=== PATIENT | male | born 1970 | race Two or more races ===

== ENCOUNTER → 2021-08-13 07:41 | Outpatient (BNVA) | payer OTHER, SELFPAY | PROVIDERS: Visit Provider Physician Assistant Medical | DX: S80.02XA Contusion of left knee, initial encounter (principal); S82.002A Unspecified fracture of left patella, initial encounter for closed fracture; S93.402A Sprain of unspecified ligament of left ankle, initial encounter; S43.401A Unspecified sprain of right shoulder joint, initial encounter; S63.501A Unspecified sprain of right wrist, initial encounter; V66 Occupant of heavy transport vehicle injured in collision with other nonmotor vehicle | CPT/HCPCS: 73030; 73070; 73110; 73564; 73610; 99204 ==

== ENCOUNTER → 2021-08-16 13:46 | Outpatient (BNVA) | payer OTHER, SELFPAY | PROVIDERS: Visit Provider Physician Assistant | DX: S93.402A Sprain of unspecified ligament of left ankle, initial encounter (principal); M23.92 Unspecified internal derangement of left knee | CPT/HCPCS: 99202 ==

== ENCOUNTER → 2021-08-23 07:58 | Outpatient (BNVA) | payer OTHER, SELFPAY | PROVIDERS: Visit Provider Physician Assistant Medical | DX: Z13.89 Encounter for screening for other disorder (principal) ==

== ENCOUNTER 2021-08-31 14:07 | Outpatient (REF) | payer OTHER, SELFPAY ==
--- NOTE | ~2021-08-31 | MR_ITS ---
EXAMINATION: MR KNEE WITHOUT CONTRAST, LEFT CLINICAL INFORMATION: Left knee pain following an injury. Internal derangement. COMPARISON: Left knee radiographs dated 08/13/2021. TECHNIQUE: MRI of the knee without contrast was performed using routine sequences on a high-field scanner. FINDINGS: MENISCI: Medial Meniscus: Intact. Lateral Meniscus: Intact. LIGAMENTS: Cruciate: Attenuation of the anterior cruciate ligament without adjacent edema which could represent normal variation versus a chronic sprain/partial tear. Intact posterior cruciate ligament. Collateral: Intact. EXTENSOR MECHANISM: Normal patellofemoral alignment. No patella bang. Normal TT-TG distance. Intact quadriceps and patellar tendons. Minimal edema within the superolateral aspect of Hoffa's fat pad, which can be seen in the setting of patellar tendon-lateral femoral condyle friction syndrome. ARTICULAR CARTILAGE/BONE: Patellofemoral Compartment: Articular cartilage signal heterogeneity with full-thickness fissuring at the medial patellar facet measuring up to 0.7 cm in craniocaudal dimension. Underlying subchondral cystic change and marrow edema. Tiny marginal osteophytes. Medial Compartment: Intact articular cartilage. Lateral Compartment: Intact articular cartilage. JOINT FLUID AND BURSAE: Trace joint effusion. MR/MR knee LT wo con IMPRESSION: 1. Mild patellofemoral arthrosis. Trace joint effusion. 2. Edema within the superolateral aspect of Hoffa's fat pad, which can be seen in the setting of patellar tendon-lateral femoral condyle friction syndrome. 3. No acute meniscal or ligamentous injury. Attenuation of the anterior cruciate ligament without edema which could represent normal variation versus a remote sprain/partial tear.
--- NOTE | ~2021-08-31 | MR_ITS ---
EXAMINATION: MRI ANKLE WITHOUT CONTRAST, LEFT CLINICAL INFORMATION: Ligament sprain of left ankle. COMPARISON: X-ray of the left ankle 08/13/2021. TECHNIQUE: MRI of the left ankle was performed without contrast on a high-field MRI scanner. FINDINGS: SUBCUTANEOUS SOFT TISSUES: Normal. MUSCLES AND TENDONS: Achilles: Mild heterogeneity of the Achilles tendon compatible with tendinosis and perhaps small areas of interstitial partial tearing in the distal portion of the tendon but no measurable defect. There is minimal edema in Kager's fat pad. The remaining muscles and tendons are normal. NEUROVASCULAR STRUCTURES/TARSAL TUNNEL: Normal. LIGAMENTS: Intact. BONE/CARTILAGE: Talus: There is bone marrow edema along the medial aspect of the talus in the region of the posterior subtalar joint compatible with bone contusion. There is bone marrow edema along the medial neck and head of the talus compatible with bone contusion. Overlying articular cartilage is intact. Calcaneus: Bone marrow edema in the anterior process of the calcaneus compatible with bone contusion. Remaining bones and joints are normal. PLANTAR FASCIA: Normal. MR/MR ankle LT wo con IMPRESSION: Bone contusions involving the talus and calcaneus. Ligaments appear intact.
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
== END 2021-08-31 14:08 | disposition home or self-care (01) ==
LOC: HO.MRI 14:07
PROVIDERS: Visit Provider Physician Assistant
DX: M23.92 Unspecified internal derangement of left knee (principal); S93.402A Sprain of unspecified ligament of left ankle, initial encounter; X58.XXXA Exposure to other specified factors, initial encounter; Y93.9 Activity, unspecified; Y92.9 Unspecified place or not applicable; Y99.9 Unspecified external cause status
CPT/HCPCS: 73721

== ENCOUNTER → 2021-09-10 14:19 | Outpatient (BNVA) | payer OTHER, SELFPAY | PROVIDERS: Visit Provider Physician Assistant | DX: M22.2X2 Patellofemoral disorders, left knee (principal); S83.512D Sprain of anterior cruciate ligament of left knee, subsequent encounter; S90.02XD Contusion of left ankle, subsequent encounter | CPT/HCPCS: 99212 ==

== ENCOUNTER → 2021-10-26 11:42 | Outpatient (BNVA) | payer OTHER, SELFPAY | PROVIDERS: Visit Provider Orthopaedic Surgery | DX: M22.2X9 Patellofemoral disorders, unspecified knee (principal); S93.402D Sprain of unspecified ligament of left ankle, subsequent encounter; S83.519D Sprain of anterior cruciate ligament of unspecified knee, subsequent encounter; S90.02XD Contusion of left ankle, subsequent encounter | CPT/HCPCS: 99212 ==

== ENCOUNTER → 2021-12-07 11:28 | Outpatient (BNVA) | payer OTHER, SELFPAY | PROVIDERS: Visit Provider Physician Assistant | DX: M22.2X9 Patellofemoral disorders, unspecified knee (principal); S83.519A Sprain of anterior cruciate ligament of unspecified knee, initial encounter | CPT/HCPCS: 99212 ==

== ENCOUNTER 2021-12-18 14:00 | Outpatient (RCR) | payer OTHER, SELFPAY ==
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
--- NOTE | 2021-12-18 14:51 | MHC.PT.DC ---
[facility] [place] [facility] [place] Office [place] Office [address] [phone] F: [phone] F: [phone] F: [phone] F: [phone] Physical Therapy Discharge Report Diagnosis: This is a 51 yo male presenting to skilled PT with a script for internal derangement L knee, sprain of L ankle Date of Surgery: Date of Evaluation: 09/20/21 Date of Discharge: 12/18/21 Treatments to Date: 24 Cancellations to Date: 0 No Shows to Date: 0 Discharge Status: Achieved Goals Improved Function Independent with HEP Patient Elected to Stop Discharge Summary: Patient reporting 2-3/10 pain at the worst. He reports that walking long distances still cause some pain. He demos normal ROM and strength of his knees, continued mild gastroc tightness but no pain. He has a thorough HEP to continue on his own. He returns to work next week and has been cleared by ortho. DC to HEP. Electronically signed by: Anaid Mcgovern PT Please sign and return to therapist. Thank you for your referral.
== END 2021-12-18 15:05 | disposition home or self-care (01) ==
LOC: HO.PTCHIC 14:00
PROVIDERS: Visit Provider Physician Assistant
DX: S93.402A Sprain of unspecified ligament of left ankle, initial encounter (principal); M23.92 Unspecified internal derangement of left knee; M22.2X2 Patellofemoral disorders, left knee
CPT/HCPCS: 97110; 97140; 97162; 97164; 97530

== ENCOUNTER 2022-08-14 08:26 | Emergency (ER) | payer OTHER, SELFPAY ==
--- NOTE | ~2022-08-14 | XR_ITS ---
EXAMINATION: XR CHEST CLINICAL INFORMATION: Chest pain COMPARISON: None available. TECHNIQUE: Frontal view of the chest was obtained. FINDINGS: Lungs grossly clear. Heart and pulmonary vessels normal. XR/XR chest 1V IMPRESSION: Unremarkable examination.
[2022-08-14 08:35] VITALS: BP 141/77; PULSE 78; RESP 21; TEMP 36.8; O2SAT 98
[2022-08-14 08:38] VITALS: BP 141/77; PULSE 78; RESP 13; TEMP 36.8; O2SAT 98
[2022-08-14 08:44] VITALS: BP 141/77; PULSE 78; RESP 20; TEMP 36.8; O2SAT 99; BMI 32.1
--- NOTE | 2022-08-14 08:47 | ECG_ITS ---
Test Reason : chest pain Blood Pressure : / mmHG Vent. Rate : 069 BPM Atrial Rate : 069 BPM P-R Int : 130 ms QRS Dur : 088 ms QT Int : 378 ms P-R-T Axes : 057 -28 -16 degrees QTc Int : 405 ms Normal sinus rhythm Minimal voltage criteria for LVH, may be normal variant ( R in aVL ) Nonspecific T wave abnormality Abnormal ECG No previous ECGs available Referred By: Vanessa Leyva Electronically Signed By:Jamshid Alatorre
--- NOTE | 2022-08-14 08:48 | ED.CHESTPAIN ---
HPI - Chest Pain General Chief Complaint: Chest Pain Stated Complaint: chest pain Time Seen by Provider: 08/14/22 08:47 Source: patient Mode of arrival: ambulatory Limitations: no limitations History of Present Illness HPI narrative: 51 y/o male presents to the ER for evaluation of chronic cough for the last 4 months along with bilateral chest pain L>R for the last several weeks. He states his child and were sick with COVID a few months ago but he never got it. He has been having a chronic cough since then. His also has a chronic cough similar duration. He states his cough is worse with deep breaths and he has a hard time taking deep breaths. He states the pain is mostly in his left chest but sometimes the right, in the lower ribs. He denies any CENTENO, leg swelling, fever, chills, N/V/D or abdominal pain. He is occasionally bringing up yellow phelgm. He intemittently takes meds for his seasonal allergies. No pulmonary history. He is a never smoker. MD complaint: chest pain Onset (ago): month(s) (4) Timing of current episode: episodic Prior episodes: Yes Pain location: left chest and right chest Pain radiation: none Severity: severe Quality: aching and sharp Relieving factors: rest Exacerbating factors: inspiration, palpation and other (coughing) Context: recent illness Associated symptoms: cough Treatment prior to arrival: none Risk Factors Coronary artery disease risk factors: none Thoracic aortic dissection risk factors: none Related Data Home Medications Medication Instructions Recorded Confirmed ibuprofen 800 mg tablet 800 mg PO TID 08/16/21 Previous Rx's Medication Instructions Recorded ibuprofen 800 mg tablet 800 mg PO TID PRN pain #90 tabs 10/26/21 benzonatate 200 mg capsule 200 mg PO TID PRN cough #30 caps 08/14/22 ibuprofen 800 mg tablet 800 mg PO Q8H PRN pain #14 tabs 08/14/22 Allergies Allergy/AdvReac Type Severity Reaction Status Date / Time No Known Allergies Allergy Verified 12/07/21 11:36 Review of Systems Review of Systems: Yes all other systems are reviewed and are negative [facility] Past Medical History Surgical History History of facial surgery History of surgery on lower extremity Family History Family History Brother Colon cancer Father Colon cancer Prostate cancer Social History Social History Household Members: Spouse and Children Housing: House Alcohol intake: current Alcohol intake frequency: holidays/special occasions only Patient Tobacco Use Status: Former Tobacco user Smoked in Last 30 Days: No Use of substances other than those prescribed or required for medical reasons: No Advance Directives: No Current occupational status: employed Current occupation: City worker /rt handed Physical Exam Vital Signs: Vital Signs: Last Vital Signs Temp 98.3 F 08/14/22 08:44 Pulse 78 08/14/22 08:44 Resp 20 08/14/22 08:44 BP 141/77 H 08/14/22 08:44 Pulse Ox 99 08/14/22 08:44 O2 Del Method Room Air 08/14/22 08:44 BMI result Body Mass Index 32.1 Appearance: Alert. Oriented X3. No acute distress. Head: normocephalic, atraumatic. Eyes: Pupils equal, round and reactive to light. ENT: Pharynx normal. No tonsillar swelling or exudate. Neck: Normal inspection. Neck supple. CVS: Normal heart rate and rhythm. Pulses normal. Mild anterior chest wall tenderness throughout. Respiratory: No respiratory distress. Breath sounds with forced end expiratory wheeze in FLIP only. Abdomen: Soft and nontender. +BS x4 Skin: Skin warm and dry. Normal skin color. Normal skin turgor. No rashes. Extremities: No lower extremity edema. No joint swelling. Neuro/psych: Oriented X 3. No motor deficit. No sensory deficit. CN II-XII intact. Normal speech and cognition. Medications Administered Discontinued Medications Generic Name Dose Route Start Last Admin Trade Name Freq PRN Reason Stop Dose Admin Albuterol Sulfate 2 puff 08/14/22 08:58 08/14/22 09:49 Albuterol Sulfate 90 Mcg 8 Gm Inhaler INHALE 08/14/22 08:59 2 puff ONCE ONE Administration Medical Decision Making Medical Decision Making MDM Narrative: 51 yo healthy male presents to the ER for evaluation of a chronic cough for the last 4 months along with associated chest pain and difficulty taking a deep breath. Suspect chronic cough due to undiagnosed COVID-19. His VS are stable. No tachycardia or hypoxia. He was given 2 puffs of albuterol inhaler for some forced end expiatory wheezing with improvement. His CXR is clear. His EKG is normal. Labs unremarkable, troponin only 6 not consistent with cardiac ischemia. Will prescribed albuterol inhaler for home along with antitussive. NSAID for chest pain, most likely costochondritis due to chronic coughing. He has a physical coming up with his PCP. He is stable for d/c home. Differential Diagnosis Differential Diagnoses: The differential diagnosis associated with the presentation includes viral syndrome, allergies, PNA, bronchitis, chronic cough 2/2 COVID, costochondritis, pericarditis, myocarditis, doubt ACS or PE Lab Data MDM Lab Attestation statement: I reviewed the patient's lab results. polycythemia 08/14/22 08:57 08/14/22 08:57 Labs: Lab Results 08/14/22 08/14/22 08/14/22 Range/Units 08:57 08:57 08:57 WBC 10.1 (4.8-10.8) X10*3/uL RBC 6.32 H (4.60-5.80) X10*6/uL Hgb 18.1 H (14.0-18.0) g/dl Hct 54.9 H (42.0-52.0) % MCV 86.9 (80.0-98.0) fL MCH 28.6 (27.0-33.0) pg MCHC 33.0 (31.0-36.0) g/dl RDW 14.4 (11.0-16.0) % Plt Count 183 (160-400) X10*3/uL MPV 9.9 (9.4-12.4) fL Immature Gran % (Auto) 0.3 (0.0-0.4) % Neut % (Auto) 77.4 H (45-73) % Lymph % (Auto) 14.2 L (20-40) % [place] % (Auto) 6.4 (2-11) % Eos % (Auto) 1.2 (0-4) % Baso % (Auto) 0.5 (0-2) % Lymph # (Auto) 1.4 (1.2-4.9) X10*3/uL [place] # (Auto) 0.6 (0.1-1.2) X10*3/uL Eos # (Auto) 0.1 (0.0-0.4) X10*3/uL Baso # (Auto) 0.1 (0.0-0.2) X10*3/uL Abs Immat Gran (auto) 0.03 (0.00-0.03) X10*3/uL Absolute Neuts (auto) 7.8 (2.0-8.3) x10*3/uL Absolute Nucleated RBC 0.000 (0.0-0.012) X10*3/uL Nucleated RBC % (auto) 0.0 (0.0-0.2) /100WBC PT 11.1 (10.0-13.1) SEC INR 1.0 (0.9-1.1) APTT 25.0 L (26.0-36.4) SEC Sodium 140 (135-145) mmol/L Potassium 4.1 (3.3-5.1) mmol/L Chloride 105 (96-108) mmol/L Carbon Dioxide 27 (22-29) mmol/L Anion Gap 12 (12-20) BUN 16 (9-16) mg/dL Creatinine 1.26 (0.5-1.4) mg/dL Estim Creat Clear Calc 82.2 Estimated GFR > 60 Random Glucose 132 H (60-115) mg/dL Calcium 9.2 (8.4-10.2) mg/dL Magnesium 1.9 (1.6-2.6) mg/dL Total Bilirubin 0.7 (0.0-1.0) mg/dL Direct Bilirubin 0.2 (0.0-0.5) mg/dL AST 88 H (5-37) U/L ALT 86 H (0-40) U/L Alkaline Phosphatase 36 L (39-117) U/L Troponin I High Sens (<3.5-35.0) ng/L Total Protein 6.4 L (6.5-8.0) g/dL Albumin 3.8 (3.5-5.0) g/dL 08/14/22 Range/Units 08:57 WBC (4.8-10.8) X10*3/uL RBC (4.60-5.80) X10*6/uL Hgb (14.0-18.0) g/dl Hct (42.0-52.0) % MCV (80.0-98.0) fL MCH (27.0-33.0) pg MCHC (31.0-36.0) g/dl RDW (11.0-16.0) % Plt Count (160-400) X10*3/uL MPV (9.4-12.4) fL Immature Gran % (Auto) (0.0-0.4) % Neut % (Auto) (45-73) % Lymph % (Auto) (20-40) % [place] % (Auto) (2-11) % Eos % (Auto) (0-4) % Baso % (Auto) (0-2) % Lymph # (Auto) (1.2-4.9) X10*3/uL [place] # (Auto) (0.1-1.2) X10*3/uL Eos # (Auto) (0.0-0.4) X10*3/uL Baso # (Auto) (0.0-0.2) X10*3/uL Abs Immat Gran (auto) (0.00-0.03) X10*3/uL Absolute Neuts (auto) (2.0-8.3) x10*3/uL Absolute Nucleated RBC (0.0-0.012) X10*3/uL Nucleated RBC % (auto) (0.0-0.2) /100WBC PT (10.0-13.1) SEC INR (0.9-1.1) APTT (26.0-36.4) SEC Sodium (135-145) mmol/L Potassium (3.3-5.1) mmol/L Chloride (96-108) mmol/L Carbon Dioxide (22-29) mmol/L Anion Gap (12-20) BUN (9-16) mg/dL Creatinine (0.5-1.4) mg/dL Estim Creat Clear Calc Estimated GFR Random Glucose (60-115) mg/dL Calcium (8.4-10.2) mg/dL Magnesium (1.6-2.6) mg/dL Total Bilirubin (0.0-1.0) mg/dL Direct Bilirubin (0.0-0.5) mg/dL AST (5-37) U/L ALT (0-40) U/L Alkaline Phosphatase (39-117) U/L Troponin I High Sens 6.2 (<3.5-35.0) ng/L Total Protein (6.5-8.0) g/dL Albumin (3.5-5.0) g/dL Independent Interpretation I performed an independent interpretation of an: EKG and Plain X-Ray Interpretation: EKG with normal sinus rhythm, HR 69 bpm, t wave inversion in leads III and aVF, no ST segment elevations or depressions. CXR wtih clear lungs Radiology Impression Discussion of test interpretation with radiology: I have reviewed the radiologist's reading. Radiologist Impression: EXAMINATION: XR CHEST CLINICAL INFORMATION: Chest pain COMPARISON: None available. TECHNIQUE: Frontal view of the chest was obtained. FINDINGS: Lungs grossly clear. Heart and pulmonary vessels normal. XR/XR chest 1V IMPRESSION: Unremarkable examination. External Record Review External record reviewed: Outpatient record, Prior outpatient labs and Prior outpatient radiology Prescription Management I considered prescription management with: Pain Medication Critical Care Time Critical Care Time Critical Care Time: No Discharge Plan Discharge Clinical Impression: Chronic cough Patient Disposition: Home, Self-Care Instructions: Chronic Cough (ED) Additional Instructions: Your workup today was normal. Your chest x-ray was normal. Use the inhaler as needed for shortness of breath. Take the prescribed anti-inflammatory medication as needed for pain. Take the prescribed cough medication as needed. If you develop new or worsening symptoms call 911 or come back to the ER for further evaluation. Prescriptions: New ibuprofen 800 mg tablet 800 mg PO Q8H PRN (Reason: pain) Qty: 14 0RF benzonatate 200 mg capsule 200 mg PO TID PRN (Reason: cough) Qty: 30 0RF No Action ibuprofen 800 mg tablet 800 mg PO TID ibuprofen 800 mg tablet 800 mg PO TID PRN (Reason: pain) Qty: 90 0RF Stand Alone Forms: Work/School Release Interventions: ED Discharge Assessment Last Done: 08/14/22 10:23 Discharge Date/Time: 08/14/22 10:24
[2022-08-14 09:01] LABS: MANUAL DIFF FLAG NO
[2022-08-14 09:03] LABS: Basophils Absolute Auto 0.1 X10*3/uL (0.0-0.2); Basophils Percent Auto 0.5 % (0-2); Eosinophils Absolute Auto 0.1 X10*3/uL (0.0-0.4); Eosinophils Percent Auto 1.2 % (0-4); Hematocrit 54.9 % (42.0-52.0); Hemoglobin 18.1 g/dl (14.0-18.0); Imm Gran Abs Auto 0.03 X10*3/uL (0.00-0.03); Imm Gran Pct Auto 0.3 % (0.0-0.4); Lymphocytes Absolute Auto 1.4 X10*3/uL (1.2-4.9); Lymphocytes Percent Auto 14.2 % (20-40); Mean Corpuscular Hemoglobin 28.6 pg (27.0-33.0); Mean Corpuscular Volume 86.9 fL (80.0-98.0); Mean Platelet Volume 9.9 fL (9.4-12.4); Monocytes Absolute Auto 0.6 X10*3/uL (0.1-1.2); Monocytes Percent Auto 6.4 % (2-11); Neutrophils Absolute Auto 7.8 x10*3/uL (2.0-8.3); Neutrophils Percent Auto 77.4 % (45-73); Platelet Count 183 X10*3/uL (160-400); Red Blood Count 6.32 X10*6/uL (4.60-5.80); Red Cell Distribution Width 14.4 % (11.0-16.0); White Blood Count 10.1 X10*3/uL (4.8-10.8)
[2022-08-14 09:13] LABS: Prothrombin Time 11.1 SEC (10.0-13.1)
[2022-08-14 09:20] LABS: Alanine Aminotransferase 86 U/L (0-40); Albumin Level 3.8 g/dL (3.5-5.0); Alkaline Phosphatase 36 U/L (39-117); Anion Gap 12 (12-20); Aspartate Amino Transferase 88 U/L (5-37); Bilirubin Direct 0.2 mg/dL (0.0-0.5); Bilirubin Total 0.7 mg/dL (0.0-1.0); Blood Urea Nitrogen 16 mg/dL (9-16); Calcium 9.2 mg/dL (8.4-10.2); Carbon Dioxide 27 mmol/L (22-29); Chloride 105 mmol/L (96-108); Creatinine Clr Calc Pharmacy 82.2; Estimated Glomerular Filt Rate > 60; Glucose Random 132 mg/dL (60-115); Magnesium 1.9 mg/dL (1.6-2.6); Potassium 4.1 mmol/L (3.3-5.1); Sodium 140 mmol/L (135-145); Total Protein 6.4 g/dL (6.5-8.0)
[2022-08-14 09:30] LABS: Troponin-I High Sensitivity 6.2 ng/L (<3.5-35.0)
[2022-08-14] MEDS: Albuterol Sulfate 90 MCG 8 GM INHALER 2 PUFF INHALE (09:49)
== END 2022-08-14 10:24 | disposition home or self-care (01) ==
PROVIDERS: Physician Assistant; Emergency Provider Emergency Medicine
DX: R05.3 Chronic cough (principal)
CPT/HCPCS: 36415; 71045; 80048; 80076; 83735; 84484; 85025; 85610; 85730; 93005; 99284